=== PATIENT | female | born 1970 | race Caucasian/White ===

== ENCOUNTER 2023-11-04 07:34 | Emergency (ER) | payer SELFPAY ==
[2023-11-04 07:40] VITALS: BP 116/92; PULSE 124; RESP 20; TEMP 36.6; O2SAT 98; BMI 40.9
--- NOTE | 2023-11-04 07:58 | ED_ITS ---
HPI - General Adult General Chief complaint: Nausea/Vomiting/Diarrhea Stated complaint: DIARRHEA, VOMITING Time Seen by Provider: 11/04/23 07:43 Source: patient Mode of arrival: walk-in Limitations: no limitations History of Present Illness HPI narrative: Patient is a 53-year-old female who is presenting to the ER today with chief complaint diarrhea this been ongoing for 7 days, loose stool. Patient just started having episodes of vomiting last night and today. Patient has no coffee-ground emesis, no hematemesis, no melena. Patient started a new [id number] hemorrhoid treatment 3 days prior to her diarrhea starting 7 days ago. Patient has not spoken to her PCP Dr. Hamlin about her diarrhea in the past 7 days. Patient has no headache. Not feeling lightheaded or dizzy. Patient states she will have intermittent chest tightness and shortness of breath only when she is having diarrhea, patient thinks that she is having situations body with her diarrhea episodes and sitting on the toilet. Patient does not have any chest pain or shortness of breath when she is not having any diarrhea. Patient has no new antibiotic started, no recent traveling. No other sick contacts. Patient is in customer service. No sick contacts at work that she is aware of. Patient has no abdominal pain, nausea, vomiting, or any other acute complaints. Son is at bedside patient does have her gallbladder appendix, she does not have a uterus or ovaries.. No urinary symptoms All systems are negative except as noted/marked. All systems reviewed and otherwise negative. Nurses note and vital signs reviewed and patient is not hypoxic. General: The patient appears well and in no apparent distress. Patient is resting comfortably on cart. Patient is not toxic, lethargic, or listless Skin: Warm, dry, no pallor noted. There is no rash noted. No petechiae, purpura. Head: Normocephalic, atraumatic Eye: Normal conjunctiva, no drainage, EOMI. PERRL Ears, Nose, Mouth, and Throat: oral mucosa is moist. Nares patent. Mouth without vesicles. Cardiovascular: Regular Rate and Rhythm, no murmur, gallop, rub Respiratory: Patient is in no distress, no accessory muscle use, lungs are clear to auscultation, no wheezing, rales or rhonchi Back: non-tender, no CVA tenderness bilaterally to percussion. No CT LS midline pain. No midepigastric tenderness to palpation, no flank pain bilateral. No suprapubic tenderness to palpation GI: no tenderness to palpation, no masses appreciated. No rebound, guarding, or rigidity noted. No distention Musculoskeletal: Patient has full range of motion of all of the extremities, no motor, sensory, or focal neurological deficits Neurological: A&O x4, normal speech Psychiatric: Cooperative Related Data Previous Rx's Medication Instructions Recorded ciprofloxacin HCl 500 mg tablet 500 mg PO BID 7 days #14 tabs 11/04/23 dicyclomine 20 mg tablet 20 mg PO TID PRN abdominal pain #7 11/04/23 tabs ondansetron 4 mg disintegrating 4 mg PO Q4H PRN nausea and 11/04/23 tablet vomiting 3 days #6 tabs Allergies Allergy/AdvReac Type Severity Reaction Status Date / Time No Known Drug Allergies Allergy Verified 11/04/23 07:39 PFSH PFSH Social History Smoking status: Current every day smoker Exam Constitutional Vital Signs, click to edit/add: Last Vital Signs Temp 97.9 F 11/04/23 07:40 Pulse 98 H 11/04/23 09:40 Resp 18 11/04/23 09:40 BP 128/65 11/04/23 09:40 Pulse Ox 99 11/04/23 09:40 O2 Del Method Room Air 11/04/23 07:40 Course Vital Signs Vital signs: Vital Signs Temperature 97.9 F 11/04/23 07:40 Pulse Rate 124 H 11/04/23 07:40 Respiratory Rate 20 11/04/23 07:40 Blood Pressure 116/92 H 11/04/23 07:40 Pulse Oximetry 98 11/04/23 07:40 Oxygen Delivery Method Room Air 11/04/23 07:40 Temperature 97.9 F 11/04/23 07:40 Pulse Rate 98 H 11/04/23 09:40 Respiratory Rate 18 11/04/23 09:40 Blood Pressure 128/65 11/04/23 09:40 Pulse Oximetry 99 11/04/23 09:40 Oxygen Delivery Method Room Air 11/04/23 07:40 Medical Decision Making MDM Narrative Medical decision making narrative: Patient was given 1 L of IV fluids, Zofran, Bentyl, lab testing, urine testing, and GI panel to test her stool if she produces a sample. Vomiting only started last evening and today, diarrhea has been there for 7 days. Patient's white blood cell count is 22. Patient has no other significant findings. Patient urine shows no signs of infection, patient has no elevation of LFTs significantly. Patient did have greater than 80 ketones in her urine. Patient was given a second liter of IV fluid. Patient has been tolerating ice chips. Patient will be sent home with materials to obtain stool sample and get back to the lab. Shared decision making was done with patient, we will start her on Cipro prophylactically to help with possible infectious diarrhea that could be bacterial. Patient will follow-up with PCP for any other acute concerns, no questions at discharge Lab Data Lab results reviewed: Yes I reviewed the patient's lab results Labs: Lab Results 11/04/23 11/04/23 Range/Units 07:53 07:58 WBC 22.5 H (4.0-11.0) 10^3/uL RBC 5.05 (4.20-5.40) 10^6/uL Hgb 15.1 (12.0-16.0) g/dL Hct 46.7 (36.0-48.0) % MCV 92.5 (81.0-99.0) fL MCH 29.9 (26.7-34.0) pg MCHC 32.3 (29.9-35.2) g/dL RDW 13.4 (11.0-15.0) % Plt Count 399 (150-450) 10^3/uL MPV 10.0 (9.5-13.5) fL Seg Neuts % (Manual) 78.0 Lymphocytes % (Manual) 8.0 L (20.5-60.0) % Monocytes % (Manual) 8.0 (1.7-12.0) % Eosinophils % (Manual) 6.0 (0.9-7.0) % Basophils % (Manual) 0.0 L (0.2-2.0) % Neutrophils # (Manual) 17.55 H (1.4-6.5) 10^3/uL Lymphocytes # (Manual) 1.80 (1.20-3.80) 10^3/uL Monocytes # (Manual) 1.80 H (0.30-0.80) 10^3/uL Eosinophils # (Manual) 1.35 H (0.00-0.70) 10^3/uL Basophils # (Manual) 0.00 (0.00-0.10) 10^3/uL Sodium 139 (136-145) mmol/L Potassium 3.9 (3.5-5.1) mmol/L Chloride 103 (98-107) mmol/L Carbon Dioxide 26.5 (21.0-32.0) mmol/L Anion Gap 13.4 BUN 13.0 (7.0-18.0) mg/dL Creatinine 0.84 (0.55-1.02) mg/dL Est GFR ( Amer) >60 (>=60) Est GFR (Non-Af Amer) >60 (>=60) BUN/Creatinine Ratio 15.5 Glucose 118 H (74-106) mg/dL Lactate 1.2 (0.4-2.0) mmol/L Calcium 9.4 (8.5-10.1) mg/dL Total Bilirubin 0.4 (0.2-1.0) mg/dL AST 26 (15-37) U/L ALT 28 (14-59) U/L Alkaline Phosphatase 203 H (46-116) U/L Total Protein 7.8 (6.4-8.2) g/dL Albumin 3.3 L (3.4-5.0) g/dL Globulin 4.5 g/dL Albumin/Globulin Ratio 0.7 Lipase 78.0 H (16.0-77.0) U/L Urine Color Dk. yellow (YELLOW) Urine Clarity Clear (CLEAR) Urine pH 6.0 (5.0-9.0) Ur Specific [place] >=1.030 A (1.005-1.025) Urine Protein 30 A (NEG/TRACE) mg/dL Urine Glucose (UA) Negative (NEGATIVE) mg/dL Urine Ketones >=80 A (NEGATIVE) mg/dL Urine Occult Blood Trace-i (NEGATIVE) Urine Nitrite Negative (NEGATIVE) Urine Bilirubin Moderate A (NEGATIVE) Urine Urobilinogen 0.2 (0.2-1.0) EU/dL Ur Leukocyte Esterase Negative (NEGATIVE) Urine RBC 0-2 (0-2) #/HPF Urine WBC 2-5 A (NONE SEEN) #/HPF Ur Squamous Epith Cells Moderate A (NONE/RARE) #/LPF Urine Crystals None seen (None Seen) #/HPF Urine Bacteria Trace A (NONE SEEN) #/HPF Urine Casts None seen (NONE SEEN) #/LPF Urine Mucus Moderate A (NONE SEEN) Discharge Plan Discharge Chief Complaint: Nausea/Vomiting/Diarrhea Clinical Impression: Diarrhea, Nausea & vomiting, Dehydration Patient Disposition: Home, Self-Care Time of Disposition Decision: 10:50 Condition: Fair Prescriptions / Home Meds: New ciprofloxacin HCl 500 mg tablet 500 mg PO BID 7 Days Qty: 14 0RF dicyclomine 20 mg tablet 20 mg PO TID PRN (Reason: abdominal pain) Qty: 7 0RF ondansetron 4 mg tablet,disintegrating 4 mg PO Q4H PRN (Reason: nausea and vomiting) 3 Days Qty: 6 0RF Instructions: Dehydration (ED), Acute Nausea and Vomiting (ED), Acute Diarrhea (ED) Additional Instructions: Increase fluids at home, Gatorade, Powerade, fluids. Use nausea medication as needed, Bentyl for abdominal cramping as needed. We have not obtained a stool sample from you in the ER, if you collect diarrhea at home, bring it back to the lab to be tested. Follow-up with your PCP for any other acute concerns. If you have significant return of abdominal pain, nausea, vomiting, return back to the ER for further evaluation Referrals: Physician,Non-Staff, MD [Primary Care Provider] - 1 week Stand Alone Forms: Portal Instructions
[2023-11-04] MEDS: 0.9 % SODIUM CHLORIDE 1,000 ML 999 ML IV (08:00)
[2023-11-04] MEDS: ONDANSETRON PF 4 MG/2 ML VIAL IV (08:00)
[2023-11-04] MEDS: DICYCLOMINE HCL 20 MG/2 ML VIAL IM (08:00)
[2023-11-04 08:06] LABS: Hematocrit 46.7 % (36.0-48.0); Hemoglobin 15.1 g/dL (12.0-16.0); Mean Corpuscular HGB Conc 32.3 g/dL (29.9-35.2); Mean Corpuscular Hemoglobin 29.9 pg (26.7-34.0); Mean Corpuscular Volume 92.5 fL (81.0-99.0); Platelet Count 399 10^3/uL (150-450); Red Blood Count 5.05 10^6/uL (4.20-5.40); Red Cell Distribution Width 13.4 % (11.0-15.0); White Blood Count 22.5 10^3/uL (4.0-11.0)
[2023-11-04 08:15] VITALS: PULSE 101
[2023-11-04 08:17] LABS: Alanine Aminotransferase 28 U/L (14-59); Albumin Globulin Ratio 0.7; Albumin Level 3.3 g/dL (3.4-5.0); Alkaline Phosphatase 203 U/L (46-116); Anion Gap 13.4; Aspartate Amino Transferase 26 U/L (15-37); BUN Creatinine Ratio 15.5; Bilirubin Total 0.4 mg/dL (0.2-1.0); Calcium 9.4 mg/dL (8.5-10.1); Carbon Dioxide 26.5 mmol/L (21.0-32.0); Chloride 103 mmol/L (98-107); Estimated GFR (African America >60 (>=60); Estimated GFR (Non-African Ame >60 (>=60); Globulin 4.5 g/dL; Glucose 118 mg/dL (74-106); Potassium 3.9 mmol/L (3.5-5.1); Sodium 139 mmol/L (136-145); Total Protein 7.8 g/dL (6.4-8.2)
[2023-11-04 08:19] LABS: Lactate/Lactic Acid 1.2 mmol/L (0.4-2.0)
[2023-11-04 08:34] LABS: Bilirubin Urine MODERATE (NEGATIVE); Blood Urine TRACE-I (NEGATIVE); Clarity Urine CLEAR (CLEAR); Color Urine DK. YELLOW (YELLOW); Glucose Urine UA NEGATIVE (NEGATIVE); Ketones Urine >=80 mg/dL (NEGATIVE); Leukocyte Esterase Urine NEGATIVE (NEGATIVE); Nitrite Urine NEGATIVE (NEGATIVE); Protein Urine 30 mg/dL (NEG/TRACE); Specific Gravity Urine >=1.030 (1.005-1.025); Urobilinogen Urine 0.2 EU/dL (0.2-1.0)
[2023-11-04 08:42] VITALS: BP 116/87; PULSE 96; RESP 18; O2SAT 99
[2023-11-04 08:55] LABS: Bacteria Urine TRACE #/HPF (NONE SEEN); Mucus Urine MODERATE (NONE SEEN); RBC Urine 0-2 #/HPF (0-2); Squamous Epithelial Cell Urine MODERATE #/LPF (NONE/RARE)
[2023-11-04 08:56] LABS: Cast Seen? NONE SEEN #/LPF (NONE SEEN); Crystals Seen? None Seen #/HPF (None Seen)
[2023-11-04 09:40] VITALS: BP 128/65; PULSE 98; RESP 18; O2SAT 99
[2023-11-04] MEDS: 0.9 % SODIUM CHLORIDE 1,000 ML 1000 ML IV (09:41)
[2023-11-04 09:45] LABS: Eosinophils Absolute Manual 1.35 10^3/uL (0.00-0.70); Segmented Neut Absolute Manual 17.55 10^3/uL (1.4-6.5)
[2023-11-04 13:38] LABS: Adenovirus F 40/41 NOT DETECTED (NOT DETECTE); Astrovirus NOT DETECTED (NOT DETECTE); Campylobacter NOT DETECTED (NOT DETECTE); Cryptosporidium NOT DETECTED (NOT DETECTE); Cyclospora cayetanensis NOT DETECTED (NOT DETECTE); Entamoeba histolytica NOT DETECTED (NOT DETECTE); Enteroaggregative E.coli NOT DETECTED (NOT DETECTE); Enteropathogenic E.coli NOT DETECTED (NOT DETECTE); Enterotoxigenic E. coli NOT DETECTED (NOT DETECTE); Giardia lamblia NOT DETECTED (NOT DETECTE); Norovirus GI/GII NOT DETECTED (NOT DETECTE); Plesiomonas shigelloides NOT DETECTED (NOT DETECTE); Rotavirus A NOT DETECTED (NOT DETECTE); Salmonella NOT DETECTED (NOT DETECTE); Sapovirus NOT DETECTED (NOT DETECTE); Shiga-like toxin-producing E.C NOT DETECTED (NOT DETECTE); Shigella/Enteroinvasive E.coli NOT DETECTED (NOT DETECTE); Vibrio NOT DETECTED (NOT DETECTE); Vibrio cholerae NOT DETECTED (NOT DETECTE); Yersinia enterocolitica NOT DETECTED (NOT DETECTE)
== END 2023-11-04 11:00 | disposition home or self-care (01) ==
PROVIDERS: Emergency Provider Emergency Medicine
DX: E86.0 Dehydration (principal); R11.2 Nausea with vomiting, unspecified; R19.7 Diarrhea, unspecified; Z90.710 Acquired absence of both cervix and uterus; F17.200 Nicotine dependence, unspecified, uncomplicated
CPT/HCPCS: 36415; 80053; 81001; 83605; 83690; 85007; 85027; 87507; 96361; 96372; 96374; 99284; J0500

== ENCOUNTER 2023-11-06 13:05 | Emergency (ER) | payer SELFPAY ==
[2023-11-06 13:13] VITALS: BP 153/93; PULSE 99; RESP 18; TEMP 36.8; O2SAT 99; BMI 39.3
--- NOTE | 2023-11-06 13:19 | CT_ITS ---
[address] [address] Patient Name: NEO MCDOWELL MRN: [id number] date: 1970 Sex: F Assigned Patient Location: ER Current Patient Location: Accession/Order Number: [id number] Exam Date: 11/06/2023 13:53 Report Date: 11/06/2023 14:29 At the request of: ALYSE ANN Procedure: CT abdomen pelvis w con EXAMINATION: CT abdomen pelvis w con HISTORY: diarrhea for 10 days COMPARISON: No relevant comparison available. TECHNIQUE: Axial, Coronal, and Sagittal images were obtained without and/or with IV contrast as indicated by examination type. Dose reduction techniques were achieved by using automated exposure control and/or adjustment of mA and/or kV according to patient size and/or use of iterative reconstruction technique. FINDINGS: LUNG BASES: No visible pulmonary or pleural disease. LIVER: No enlargement, atrophy, suspicious density, or significant focal lesion. BILIARY: A few stones within the noninflamed gallbladder, the largest 2 are approximately 15 mm in size. No abnormal duct dilation. PANCREAS: No lesion, fluid collection, or abnormal duct dilatation. SPLEEN: No enlargement or focal lesion. ADRENALS: No mass or enlargement. KIDNEYS: 1.3 cm mostly fatty lesion projecting from inferior pole of right kidney, favoring an angiomyolipoma. Nonobstructing 2 mm stone within left kidney. BOWEL/MESENTERY: Mild circumference wall thickening of the sigmoid colon and mild surrounding inflammatory changes. Similar appearance involving a short segment of the distal descending colon. Several small diverticula along the descending and sigmoid colon. No bowel obstruction. AORTA/VASCULAR: No aneurysm or dissection. RETROPERITONEUM: No mass or adenopathy. LYMPH NODES: No adenopathy. URINARY BLADDER: No visible focal wall thickening, lesion, or calculus. PELVIC ORGANS: Hysterectomy. ABDOMINAL WALL: No mass or hernia. BONES: No bony lesion or fracture. OTHER: Negative. CT/CT abdomen pelvis w con IMPRESSION: 1. Mild diverticulitis/colitis involving the descending and sigmoid colon. No bowel obstruction. 2. Cholelithiasis. 3. Left nephrolithiasis. 4. Almost entirely fatty small lesion projecting from inferior pole of right kidney favoring a benign angiomyolipoma. Electronically authenticated by: GERA ROJAS Date: 11/06/2023 14:29
--- NOTE | 2023-11-06 13:21 | ED.GENADUL1 ---
HPI - General Adult General Chief complaint: Nausea/Vomiting/Diarrhea Stated complaint: DIARRHEA Time Seen by Provider: 11/06/23 13:10 Source: patient Mode of arrival: walk-in Limitations: no limitations History of Present Illness HPI narrative: Patient complains of continued diarrhea and abdominal pain. She said that she initially felt better after taking the ciprofloxacin that was prescribed but this morning she woke with increased abdominal pain, increased diarrhea. Patient was just evaluated in our ED 2 days ago. WBC elevated at 22k. UA appears contaminated. Patient prescribed Cipro by attending physician. She had no imaging on that visit. The patient also apparently got into some poison bree or poison oak recently. She developed facial lesions that are typical of what she experiences during exposure. These were not present 2 days ago. She has not applied anything topically or taken anything by mouth for this Related Data Previous Rx's Medication Instructions Recorded ciprofloxacin HCl 500 mg tablet 500 mg PO BID 7 days #14 tabs 11/04/23 dicyclomine 20 mg tablet 20 mg PO TID PRN abdominal pain #7 11/04/23 tabs fluconazole 100 mg tablet 100 mg PO DAILY 1 day #1 tab 11/04/23 (Diflucan) ondansetron 4 mg disintegrating 4 mg PO Q4H PRN nausea and 11/04/23 tablet vomiting 3 days #6 tabs metronidazole 500 mg tablet 500 mg PO Q8H 7 days #21 tabs 11/06/23 prednisone 20 mg tablet 40 mg (2 x 20 mg) PO DAILY 3 days 11/06/23 #6 tabs Allergies Allergy/AdvReac Type Severity Reaction Status Date / Time No Known Drug Allergies Allergy Verified 11/06/23 13:13 [facility] Social History Smoking status: Current every day smoker Exam Narrative Exam Narrative: Nurses notes and vital signs reviewed and patient is not hypoxic. Afebrile General: Well-appearing and in no apparent distress. Skin: Warm, dry, no pallor noted. Contact dermatitis type rash noted on the right side of the patient's face and right neck. Eye: Pupils are equal, round and EOMI. No scleral icterus. Ears, Nose, Mouth, and Throat: TM are clear, no posterior oropharynx erythema or nasal mucosal hypertrophy, uvula is mid-line Oral mucosa is moist Cardiovascular: Regular Rate and Rhythm without murmur, gallop or rub. Respiratory: No accessory muscle use or respiratory distress. Lungs are clear to auscultation, no wheezing, rales or rhonchi Back: No CVA tenderness Musculoskeletal: normal ROM, no calf or popliteal tenderness, no lower extremity edema/swelling GI: Abdomen is soft, non-distended. Normal bowel sounds. Diffuse tenderness to palpation. No rebound, guarding, or rigidity noted. Neurological: A&O x4. No cranial nerve dysfunction observed. No truncal ataxia. Moves all extremities. Sensation intact. Psychiatric: Cooperative and interactive. Normal mood and affect. Constitutional Vital Signs, click to edit/add: Last Vital Signs Temp 98.3 F 11/06/23 13:13 Pulse 99 H 11/06/23 13:13 Resp 18 11/06/23 13:13 BP 153/93 H 11/06/23 13:13 Pulse Ox 99 11/06/23 13:13 O2 Del Method Room Air 11/06/23 13:13 Course Vital Signs Vital signs: Vital Signs Temperature 98.3 F 11/06/23 13:13 Pulse Rate 99 H 11/06/23 13:13 Respiratory Rate 18 11/06/23 13:13 Blood Pressure 153/93 H 11/06/23 13:13 Pulse Oximetry 99 11/06/23 13:13 Oxygen Delivery Method Room Air 11/06/23 13:13 Temperature 98.3 F 11/06/23 13:13 Pulse Rate 99 H 11/06/23 13:13 Respiratory Rate 18 11/06/23 13:13 Blood Pressure 153/93 H 11/06/23 13:13 Pulse Oximetry 99 11/06/23 13:13 Oxygen Delivery Method Room Air 11/06/23 13:13 Medical Decision Making MDM Narrative Medical decision making narrative: Full IV established and blood drawn and sent for testing. The patient was given normal saline IV fluid. CT abdomen pelvis with IV contrast was obtained. White blood cell count had decreased from 22 on visit 2 days ago to 20 today. No left shift noted. CMP notable only for elevated alk phos at 175. Lipase is negative. CT scan reveals mild diverticulitis/colitis involving the descending and sigmoid colon. No bowel obstruction was noted. She does have gallstones. Stones noted in the left kidney but none in the left ureter. 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 Patient informed of results. I would like to discharge her home with a prescription for Flagyl to take in addition to the Cipro for her diverticulitis/colitis. She will also be prescribed a short course of steroids for her poison bree exposure Lab Data Lab results reviewed: Yes I reviewed the patient's lab results Labs: Lab Results 11/06/23 Range/Units 13:30 WBC 20.2 H (4.0-11.0) 10^3/uL RBC 4.60 (4.20-5.40) 10^6/uL Hgb 13.8 (12.0-16.0) g/dL Hct 42.5 (36.0-48.0) % MCV 92.4 (81.0-99.0) fL MCH 30.0 (26.7-34.0) pg MCHC 32.5 (29.9-35.2) g/dL RDW 13.2 (11.0-15.0) % Plt Count 338 (150-450) 10^3/uL MPV 10.2 (9.5-13.5) fL Seg Neuts % (Manual) 53.0 Lymphocytes % (Manual) 23.0 (20.5-60.0) % Monocytes % (Manual) 5.0 (1.7-12.0) % Eosinophils % (Manual) 19.0 H (0.9-7.0) % Basophils % (Manual) 0.0 L (0.2-2.0) % Neutrophils # (Manual) 10.70 H (1.4-6.5) 10^3/uL Lymphocytes # (Manual) 4.64 H (1.20-3.80) 10^3/uL Monocytes # (Manual) 1.01 H (0.30-0.80) 10^3/uL Eosinophils # (Manual) 3.83 H (0.00-0.70) 10^3/uL Basophils # (Manual) 0.00 (0.00-0.10) 10^3/uL Sodium 142 (136-145) mmol/L Potassium 3.5 (3.5-5.1) mmol/L Chloride 104 (98-107) mmol/L Carbon Dioxide 26.4 (21.0-32.0) mmol/L Anion Gap 15.1 BUN 9.0 (7.0-18.0) mg/dL Creatinine 0.78 (0.55-1.02) mg/dL Est GFR ( Amer) >60 (>=60) Est GFR (Non-Af Amer) >60 (>=60) BUN/Creatinine Ratio 11.5 Glucose 86 (74-106) mg/dL Calcium 9.1 (8.5-10.1) mg/dL Total Bilirubin 0.4 (0.2-1.0) mg/dL AST 24 (15-37) U/L ALT 22 (14-59) U/L Alkaline Phosphatase 175 H (46-116) U/L Total Protein 7.3 (6.4-8.2) g/dL Albumin 3.0 L (3.4-5.0) g/dL Globulin 4.3 g/dL Albumin/Globulin Ratio 0.7 Lipase 37.0 (16.0-77.0) U/L Imaging Data CT scan - abdomen: Radiologist's impression: ITS Impressions Abdomen/Pelvis CT 11/06/23 13:19 IMPRESSION: 1. Mild diverticulitis/colitis involving the descending and sigmoid colon. No bowel obstruction. 2. Cholelithiasis. 3. Left nephrolithiasis. 4. Almost entirely fatty small lesion projecting from inferior pole of right kidney favoring a benign angiomyolipoma. Electronically authenticated by: GERA ROJAS Date: 11/06/2023 14:29 Discharge Plan Discharge Stand Alone Forms: Portal Instructions Chief Complaint: Nausea/Vomiting/Diarrhea Clinical Impression: Colitis, Poison bree dermatitis, Diverticulitis, Enteritis Patient Disposition: Home, Self-Care Time of Disposition Decision: 14:49 Prescriptions / Home Meds: New prednisone 20 mg tablet 40 mg PO DAILY 3 Days Qty: 6 0RF metronidazole 500 mg tablet 500 mg PO Q8H 7 Days Qty: 21 0RF No Action ciprofloxacin HCl 500 mg tablet 500 mg PO BID 7 Days Qty: 14 0RF dicyclomine 20 mg tablet 20 mg PO TID PRN (Reason: abdominal pain) Qty: 7 0RF ondansetron 4 mg tablet,disintegrating 4 mg PO Q4H PRN (Reason: nausea and vomiting) 3 Days Qty: 6 0RF fluconazole [Diflucan] 100 mg tablet 100 mg PO DAILY 1 Days Qty: 1 0RF Instructions: Diverticulitis (ED), Poison Bree (ED), Colitis (ED), Enteritis (ED) Referrals: Physician,Non-Staff, MD [Primary Care Provider] - 1 week
[2023-11-06] MEDS: 0.9 % SODIUM CHLORIDE 1,000 ML 999 ML IV (13:35)
[2023-11-06 13:49] LABS: Hematocrit 42.5 % (36.0-48.0); Hemoglobin 13.8 g/dL (12.0-16.0); Mean Corpuscular HGB Conc 32.5 g/dL (29.9-35.2); Mean Corpuscular Volume 92.4 fL (81.0-99.0); Mean Platelet Volume 10.2 fL (9.5-13.5); Platelet Count 338 10^3/uL (150-450); Red Cell Distribution Width 13.2 % (11.0-15.0); White Blood Count 20.2 10^3/uL (4.0-11.0)
[2023-11-06 14:05] LABS: Alanine Aminotransferase 22 U/L (14-59); Albumin Globulin Ratio 0.7; Alkaline Phosphatase 175 U/L (46-116); Anion Gap 15.1; Aspartate Amino Transferase 24 U/L (15-37); BUN Creatinine Ratio 11.5; Bilirubin Total 0.4 mg/dL (0.2-1.0); Calcium 9.1 mg/dL (8.5-10.1); Carbon Dioxide 26.4 mmol/L (21.0-32.0); Chloride 104 mmol/L (98-107); Estimated GFR (African America >60 (>=60); Estimated GFR (Non-African Ame >60 (>=60); Globulin 4.3 g/dL; Glucose 86 mg/dL (74-106); Potassium 3.5 mmol/L (3.5-5.1); Sodium 142 mmol/L (136-145); Total Protein 7.3 g/dL (6.4-8.2)
[2023-11-06 14:16] LABS: Lymphocytes Absolute Manual 4.64 10^3/uL (1.20-3.80)
[2023-11-06 14:17] LABS: Eosinophils Absolute Manual 3.83 10^3/uL (0.00-0.70); Monocytes Absolute Manual 1.01 10^3/uL (0.30-0.80)
[2023-11-06] MEDS: METHYLPREDNISOLONE SOD SUCC PF 125 MG/2 ML VIAL IVP (14:44)
[2023-11-06 15:15] VITALS: BP 90/57; PULSE 83; RESP 16; O2SAT 97
--- NOTE | 2023-11-11 11:04 | PC.NURSE ---
Pt called concerned for a rash she developed after being placed on Flagyl for colitis. Dr Mas evaluated and is going to stop Flagyl and place pt on Augmentin. Augmentin prescription called into [facility] in [place]. This RN spoke with pt on the phone, and informed her of this. Pt denies any questions or concerns.
== END 2023-11-06 15:16 | disposition home or self-care (01) ==
PROVIDERS: Emergency Provider Emergency Medicine
DX: K52.9 Noninfective gastroenteritis and colitis, unspecified (principal); K57.32 Diverticulitis of large intestine without perforation or abscess without bleeding; L23.7 Allergic contact dermatitis due to plants, except food; F17.210 Nicotine dependence, cigarettes, uncomplicated
CPT/HCPCS: 36415; 74177; 80053; 83690; 85007; 85027; 96374; 99285; J2930; Q9967

== ENCOUNTER 2023-11-12 10:46 | Emergency (ER) | payer SELFPAY ==
[2023-11-12 10:52] VITALS: BP 136/89; PULSE 90; RESP 20; TEMP 36.9; O2SAT 100; BMI 37.8
--- NOTE | 2023-11-12 11:13 | CT_ITS ---
[address] [address] Patient Name: NEO MCDOWELL MRN: [id number] date: 1970 Sex: F Assigned Patient Location: ER Current Patient Location: ER Accession/Order Number: [id number] Exam Date: 11/12/2023 11:28 Report Date: 11/12/2023 12:06 At the request of: YOLI COREA Procedure: CT abdomen pelvis w con EXAM: CT abdomen pelvis w con HISTORY: Recent diverticulitis, worsening pain COMPARISON: 11/06/2023 TECHNIQUE: Axial CT imaging was performed through the abdomen and pelvis with intravenous contrast. Multiplanar reformats were performed. Dose reduction techniques were achieved by using automated exposure control and/or adjustment of mA and/or kV according to patient size and/or use of iterative reconstruction technique. FINDINGS: Lung bases: Lung bases are clear. No pleural effusion. GI upper: Unremarkable. Liver: Normal size and contour. Gallbladder: Cholelithiasis without evidence of acute cholecystitis. Biliary system: No intra or extrahepatic biliary ductal dilatation. Spleen: Normal size. Pancreas: Unremarkable. Adrenal glands: Normal adrenal glands. Kidneys/ureters: Normal contours. No hydronephrosis. No nephrolithiasis or ureterolithiasis. Vessels: No aneurysm. Lymph Nodes: Persistent prominent mesenteric lymph nodes, nonspecific and may represent mesenteric adenitis. Small bowel: No wall thickening or dilatation. Colon: No wall thickening or dilatation. Sigmoid diverticulosis without evidence of acute diverticulitis. Appendix: No findings of appendicitis. Peritoneal cavity: No free fluid or pneumoperitoneum. Lower : Unremarkable. Bones: No acute bony abnormality. Soft tissues: No acute finding. Additional findings: None. CT/CT abdomen pelvis w con IMPRESSION: Sigmoid diverticulosis without evidence of acute diverticulitis. Cholelithiasis. Persistent prominent mesenteric lymph nodes, nonspecific and may represent mesenteric adenitis. Electronically authenticated by: ZAC ARMSTRONG Date: 11/12/2023 12:06
--- NOTE | 2023-11-12 11:14 | ED_ITS ---
HPI - Abdominal Pain General Chief Complaint: Abdominal Pain Stated Complaint: DIARRHEA Time Seen by Provider: 11/12/23 11:09 Source: patient and family Mode of arrival: Wheelchair Limitations: no limitations History of Present Illness HPI narrative: 53-year-old female presents to the emergency department for abdominal pain. She was here on November 03 and then in November 05. On November 05 she had a CAT scan which showed diverticulitis and she was put on Flagyl. Subsequently she developed a rash so she was taken off of the Flagyl and put on Augmentin and she has had 2 doses of it. She has not had worsening diarrhea but continues to have diarrhea but her generalized abdominal pain is worse. No fever. The pain is moderate and continuous. Related Data Home Medications Medication Instructions Recorded Confirmed amoxicillin 875 mg-potassium 1 tab PO Q12H 11/12/23 11/12/23 clavulanate 125 mg tablet Previous Rx's Medication Instructions Recorded hydrocodone 5 mg-acetaminophen 325 1 tab PO Q6H PRN pain 5 days #20 11/12/23 mg tablet tabs ondansetron 4 mg disintegrating 4 mg PO Q6H PRN nausea and 11/12/23 tablet vomiting #20 tabs Allergies Allergy/AdvReac Type Severity Reaction Status Date / Time metronidazole AdvReac Mild Rash Verified 11/12/23 10:52 Review of Systems ROS Narrative A ten point review of systems is negative except as noted above. PFSH PFSH Social History Smoking status: Current some day smoker Exam Narrative Exam Narrative: Nurses note and vital signs reviewed and patient is not hypoxic. General: The patient appears uncomfortable. Skin: Warm, dry, no pallor noted. There is no rash noted. Head: Normocephalic, atraumatic Eye: Normal conjunctiva, no drainage Ears, Nose, Mouth, and Throat: oral mucosa is moist. Nares patent. Cardiovascular: Regular Rate and Rhythm Respiratory: Patient is in no distress, no accessory muscle use, lungs are clear to auscultation, no wheezing, rales or rhonchi Back: non-tender GI: Soft and nondistended. She has mild diffuse tenderness without rebound. Musculoskeletal: The patient has no evidence of calf tenderness, no pitting edema, symmetrical pulses noted bilaterally Neurological: A&O, normal speech Psychiatric: Cooperative Constitutional Vital Signs, click to edit/add: Last Vital Signs Temp 98.5 F 11/12/23 10:52 Pulse 90 11/12/23 10:52 Resp 20 11/12/23 10:52 BP 136/89 11/12/23 10:52 Pulse Ox 100 11/12/23 10:52 O2 Del Method Room Air 11/12/23 10:52 Course Vital Signs Vital signs: Vital Signs Temperature 98.5 F 11/12/23 10:52 Pulse Rate 90 11/12/23 10:52 Respiratory Rate 20 11/12/23 10:52 Blood Pressure 136/89 11/12/23 10:52 Pulse Oximetry 100 11/12/23 10:52 Oxygen Delivery Method Room Air 11/12/23 10:52 Temperature 98.5 F 11/12/23 10:52 Pulse Rate 90 11/12/23 10:52 Respiratory Rate 20 11/12/23 10:52 Blood Pressure 136/89 11/12/23 10:52 Pulse Oximetry 100 11/12/23 10:52 Oxygen Delivery Method Room Air 11/12/23 10:52 MDM - Abdominal Pain MDM Narrative Medical decision making narrative: WBC has come down significantly and CAT scan shows no acute findings. There is no evidence of diverticulitis today so it appears to be resolving. She will continue the Augmentin and was prescribed [place] and Zofran. There is seems to be no complication of the diverticulitis such as abscess or perforation. Treatment diagnosis and follow-up were discussed with the patient. Differential Diagnosis Differential diagnosis: Likely abdominal pain, constipation, diverticulitis, pancreatitis (Abscess, perforated) and small bowel obstruction Lab Data Attestation: I reviewed the patient's lab results. Labs: Lab Results 11/12/23 Range/Units 11:13 WBC 14.3 H (4.0-11.0) 10^3/uL RBC 4.77 (4.20-5.40) 10^6/uL Hgb 14.2 (12.0-16.0) g/dL Hct 44.2 (36.0-48.0) % MCV 92.7 (81.0-99.0) fL MCH 29.8 (26.7-34.0) pg MCHC 32.1 (29.9-35.2) g/dL RDW 13.6 (11.0-15.0) % Plt Count 347 (150-450) 10^3/uL MPV 10.4 (9.5-13.5) fL Neut % (Auto) 74.9 (43.0-75.0) % Lymph % (Auto) 15.5 L (20.5-60.0) % [place] % (Auto) 4.8 (1.7-12.0) % Eos % (Auto) 4.1 (0.9-7.0) % Baso % (Auto) 0.2 (0.2-2.0) % Neut # (Auto) 10.7 H (1.4-6.5) 10^3/uL Lymph # (Auto) 2.2 (1.2-3.8) 10^3/uL [place] # (Auto) 0.7 (0.3-0.8) 10^3/uL Eos # (Auto) 0.6 (0.0-0.7) 10^3/uL Baso # (Auto) 0.0 (0.0-0.1) 10^3/uL Abs Immat Gran (auto) 0.07 H (0.00-0.03) 10^3/uL Imm/Tot Granulo (auto) 0.5 (0.0-0.5) % Sodium 139 (136-145) mmol/L Potassium 3.1 L (3.5-5.1) mmol/L Chloride 103 (98-107) mmol/L Carbon Dioxide 27.8 (21.0-32.0) mmol/L Anion Gap 11.3 BUN 13.0 (7.0-18.0) mg/dL Creatinine 0.82 (0.55-1.02) mg/dL Est GFR ( Amer) >60 (>=60) Est GFR (Non-Af Amer) >60 (>=60) BUN/Creatinine Ratio 15.9 Glucose 138 H (74-106) mg/dL Calcium 9.0 (8.5-10.1) mg/dL Imaging Data CT scan - abdomen: Radiologist's impression: ITS Impressions Abdomen/Pelvis CT 11/12/23 11:13 IMPRESSION: Sigmoid diverticulosis without evidence of acute diverticulitis. Cholelithiasis. Persistent prominent mesenteric lymph nodes, nonspecific and may represent mesenteric adenitis. Electronically authenticated by: ZAC ARMSTRONG Date: 11/12/2023 12:06 Discharge Plan Discharge Stand Alone Forms: Portal Instructions Chief Complaint: Abdominal Pain Clinical Impression: Abdominal pain Patient Disposition: Home, Self-Care Time of Disposition Decision: 13:11 Condition: Good Mode of Transportation: Private Vehicle Prescriptions / Home Meds: New hydrocodone-acetaminophen 5-325 mg tablet 1 tab PO Q6H PRN (Reason: pain) 5 Days Qty: 20 0RF ondansetron 4 mg tablet,disintegrating 4 mg PO Q6H PRN (Reason: nausea and vomiting) Qty: 20 0RF No Action amoxicillin-pot clavulanate 875-125 mg tablet 1 tab PO Q12H Instructions: Abdominal Pain (ED) Referrals: Physician,Non-Staff, MD [Primary Care Provider] - 1 week
[2023-11-12] MEDS: MORPHINE SULFATE 4 MG/ML VIAL IV ×2 (11:19→12:38)
[2023-11-12] MEDS: 0.9 % SODIUM CHLORIDE 1,000 ML 1000 ML IV (11:19)
[2023-11-12] MEDS: ONDANSETRON PF 4 MG/2 ML VIAL IV (11:19)
[2023-11-12 11:24] LABS: Basophils Percent Auto 0.2 % (0.2-2.0); Eosinophils Absolute Auto 0.6 10^3/uL (0.0-0.7); Eosinophils Percent Auto 4.1 % (0.9-7.0); Hematocrit 44.2 % (36.0-48.0); Hemoglobin 14.2 g/dL (12.0-16.0); Immature Granulocytes Abs Auto 0.07 10^3/uL (0.00-0.03); Immature Granulocytes Pct Auto 0.5 % (0.0-0.5); Lymphocytes Absolute Auto 2.2 10^3/uL (1.2-3.8); Lymphocytes Percent Auto 15.5 % (20.5-60.0); Mean Corpuscular HGB Conc 32.1 g/dL (29.9-35.2); Mean Corpuscular Hemoglobin 29.8 pg (26.7-34.0); Mean Corpuscular Volume 92.7 fL (81.0-99.0); Mean Platelet Volume 10.4 fL (9.5-13.5); Monocytes Absolute Auto 0.7 10^3/uL (0.3-0.8); Monocytes Percent Auto 4.8 % (1.7-12.0); Neutrophils Absolute Auto 10.7 10^3/uL (1.4-6.5); Neutrophils Percent Auto 74.9 % (43.0-75.0); Platelet Count 347 10^3/uL (150-450); Red Blood Count 4.77 10^6/uL (4.20-5.40); Red Cell Distribution Width 13.6 % (11.0-15.0); White Blood Count 14.3 10^3/uL (4.0-11.0)
[2023-11-12 11:25] LABS: Anion Gap 11.3; BUN Creatinine Ratio 15.9; Carbon Dioxide 27.8 mmol/L (21.0-32.0); Chloride 103 mmol/L (98-107); Estimated GFR (African America >60 (>=60); Estimated GFR (Non-African Ame >60 (>=60); Glucose 138 mg/dL (74-106); Potassium 3.1 mmol/L (3.5-5.1); Sodium 139 mmol/L (136-145)
== END 2023-11-12 13:31 | disposition home or self-care (01) ==
PROVIDERS: Emergency Provider Emergency Medicine
DX: R10.9 Unspecified abdominal pain (principal); F17.210 Nicotine dependence, cigarettes, uncomplicated
CPT/HCPCS: 36415; 74177; 80048; 85025; 96361; 96374; 96375; 96376; 99285; Q9967